=== PATIENT | male | born 1950 | race Caucasian/White ===

== ENCOUNTER 2016-05-14 23:37 | Emergency (ER) | payer BC, MEDICARE, OTHER ==
[~2016-05-14] VITALS: Ht 185.4 cm; Wt 114.0 kg
[~2016-05-14 23:37] MED LIST: Z.0.NO CURRENT MEDS
[2016-05-14 23:50] VITALS: BP 135/102; PULSE 70; RESP 18; TEMP 97.9; O2SAT 99
[2016-05-14 23:59] VITALS: RESP 18; O2SAT 99
[2016-05-15] MEDS ORDERED: ASPIRIN 81 MG CHEW TAB PO ONE
--- NOTE | 2016-05-15 | PD ---
HPI Chief Complaint: Chest Pain Time Seen by Provider: 23:40 Travel History International Travel<30 days: No Contact w/Intl Traveler<30days: No Traveled to known affect area: No History of Present Illness HPI The patient is a 66-year-old male with a history of coronary artery disease and states that at approximately 11 PM tonight he felt a pressure sensation behind the sternal area associated with diaphoresis, nausea and shortness of breath. He took 2 baby aspirin today. He has a history of atrial fibrillation since 2007. He is from [place] and does not have a half sole fitter there, he has a primary care doctor up there but no local doctor down here. He is on vacation. The pain is constant and slightly pleuritic. He didn't bring his medicines and doesn't know his medications but thinks the only 2 medications he is on are metoprolol and aspirin. Apparently, he has refused to take anticoagulants for his atrial fibrillation. He states that he has difficult veins and he will give us only one shot to start an IV/draw blood. He does not drink alcohol. PFS Past Medical History Blood Disorders: No Cardiovascular Problems: Yes Chest Pain: Yes Genitourinary: No Hypertension: Yes Musculoskeletal: Yes Neurologic: No Reproductive: No Respiratory: No Social History Alcohol Use: No Tobacco Use: No Substance Use: No Allergies-Medications (Allergen,Severity, Reaction): Coded Allergies: No Known Allergies (Verified , 05/14/16) Reported Meds & Prescriptions Reported Meds & Active Scripts Active Review of Systems ROS Limitations: Uncooperative Except as stated in HPI: all other systems reviewed are Neg Physical Exam Exam Limitations: Poor Historian, Uncooperative Narrative GENERAL: The patient is alert, oriented 3 and slight apparent distress with his chest discomfort. His vital signs show blood pressure 135/102 but are otherwise normal. SKIN: Warm and dry. No skin rash is noted. HEAD: Atraumatic. Normocephalic. EYES: Pupils equal and round. No scleral icterus. No injection or drainage. ENT: No nasal bleeding or discharge. Mucous membranes pink and moist. NECK: Trachea midline. No JVD. CARDIOVASCULAR: Regular rate and rhythm. No murmur appreciated. RESPIRATORY: No accessory muscle use. Clear to auscultation. Breath sounds equal bilaterally. GASTROINTESTINAL: Abdomen soft, non-tender, nondistended. Hepatic and splenic margins not palpable. No guarding or rebound is present. MUSCULOSKELETAL: No obvious deformities. No clubbing. No cyanosis. No edema. NEUROLOGICAL: Awake and alert. No obvious cranial nerve deficits. Motor grossly within normal limits. Normal speech. PSYCHIATRIC: Appropriate mood and affect; insight and judgment normal. Data Data Last Documented VS Vital Signs Date Time Temp Pulse Resp B/P Pulse Ox O2 Delivery O2 Flow Rate FiO2 05/15/16 02:28 78 18 97 Room Air 05/15/16 01:49 113/82 05/14/16 23:50 97.9 Orders Electrocardiogram (05/14/16 23:47) B-Type Natriuretic Peptide (05/14/16 23:47) Ckmb (Isoenzyme) Profile (05/14/16 23:47) Complete Blood Count With Diff (05/14/16 23:47) Comprehensive Metabolic Panel (05/14/16 23:47) Magnesium (Mg) (05/14/16 23:47) Prothrombin Time / Inr (Pt) (05/14/16 23:47) Act Partial Throm Time (Ptt) (05/14/16 23:47) Troponin I (05/14/16 23:47) Ecg Monitoring (05/14/16 23:47) Iv Access Insert/Monitor (05/14/16 23:47) Oximetry (05/14/16 23:47) Oxygen Administration (05/14/16 23:47) Aspirin Chew (Aspirin Chew) (05/15/16 00:00) Sodium Chloride 0.9% Flush (Ns Flush) (05/15/16 00:00) Nitroglycerin Sl (Nitrostat Sl) (05/15/16 00:00) Chest, Pa & Lat (05/14/16 23:47) Ondansetron Inj (Zofran Inj) (05/15/16 01:15) CKMB (05/15/16 01:10) CKMB% (05/15/16 01:10) Ct Thorax/ Chest Wo Iv Contras (05/15/16 00:37) Labs Laboratory Tests Test 05/15/16 01:10 White Blood Count 7.6 TH/MM3 Red Blood Count 4.60 MIL/MM3 Hemoglobin 14.1 GM/DL Hematocrit 42.3 % Mean Corpuscular Volume 91.9 FL Mean Corpuscular Hemoglobin 30.7 PG Mean Corpuscular Hemoglobin 33.4 % Concent Red Cell Distribution Width 13.2 % Platelet Count 254 TH/MM3 Mean Platelet Volume 7.8 FL Neutrophils (%) (Auto) 69.5 % Lymphocytes (%) (Auto) 20.2 % Monocytes (%) (Auto) 9.1 % Eosinophils (%) (Auto) 0.6 % Basophils (%) (Auto) 0.6 % Neutrophils # (Auto) 5.4 TH/MM3 Lymphocytes # (Auto) 1.5 TH/MM3 Monocytes # (Auto) 0.7 TH/MM3 Eosinophils # (Auto) 0.0 TH/MM3 Basophils # (Auto) 0.0 TH/MM3 CBC Comment DIFF FINAL Differential Comment Prothrombin Time 11.7 SEC Prothromb Time International 1.1 RATIO Ratio Activated Partial 23.6 SEC Thromboplast Time Sodium Level 140 MEQ/L Potassium Level 3.9 MEQ/L Chloride Level 106 MEQ/L Carbon Dioxide Level 25.4 MEQ/L Anion Gap 9 MEQ/L Blood Urea Nitrogen 20 MG/DL Creatinine 1.30 MG/DL Estimat Glomerular Filtration 55 ML/MIN Rate Random Glucose 236 MG/DL Calcium Level 8.5 MG/DL Magnesium Level 2.1 MG/DL Total Bilirubin 0.4 MG/DL Aspartate Amino Transf 25 U/L (AST/SGOT) Alanine Aminotransferase 26 U/L (ALT/SGPT) Alkaline Phosphatase 117 U/L Total Creatine Kinase 147 U/L Creatine Kinase MB 1.9 NG/ML Troponin I 0.06 NG/ML B-Type Natriuretic Peptide 104 PG/ML Total Protein 7.3 GM/DL Albumin 3.4 GM/DL MDM Medical Decision Making Medical Screen Exam Complete: Yes Emergency Medical Condition: Yes Medical Record Reviewed: Yes Interpretation(s) The EKG shows atrial fibrillation rhythm with a rate of [address] elevation or depression. All EKGs for comparison are from 2006 when he was in sinus rhythm. The 20-50 Accu-Chek was 31, the 26/06/09 Accu-Chek was 39 and the 26/06/29 Accu-Chek was 139. At this time the patient feels fine and wants to go. He will be given a prescription for Zofran. The complete metabolic profile shows a BUN of 20, glucose 236, GFR 55 but is otherwise unremarkable. The BNP is 104. The cardiac enzymes show a troponin I of 0.06. The ProTime is 11.7 with an INR 1.1 and a PTT of 23.6. Differential Diagnosis Acute coronary syndrome, chest pain etiology undetermined, esophageal pain, chest wall pain, pleuritic pain, gastrointestinal pain, musculoskeletal pain Narrative Course The patient now refuses his nitroglycerin. A CT angiogram was ordered to rule out aortic dissection because of the finding on chest x-ray. The patient was told about this and agreed to do a CT angiogram. Unfortunately, the IV versed during the angiogram test in the contrast portion of the angiogram cannot be done. Therefore we cannot rule out a dissection. The patient does have a slightly elevated cardiac enzyme and we strongly recommended admission. The patient refused and is signing out AMA. He was told about the dangers of doing this, sudden cardiac , dissection aortic aneurysm and . Diagnosis Primary Impression: Elevated troponin I level Additional Impression: Aortic arch dissection Additional Instructions: If you change your mind we will want to admit you. You have evidence of some slight cardiac damage at this time and we could not rule out an aortic dissection. If you get worse or change her mind, please return to emergency department. Disposition: AGAINST MEDICAL ADVICE Condition: Stable Pedro Hoffman MD May 15, 2016 00:00
[2016-05-15] MEDS: NITROGLYCERIN 0.4 MG SL 25 TABS/BTL SL SCH ×5 (00:05→01:42)
--- NOTE | 2016-05-15 00:31 | RADHPO ---
EXAM DATE/TIME: 05/15/2016 00:11 [facility] COMPARISON: No previous studies available for comparison. INDICATIONS : Chest pain. MEDICAL HISTORY : None. SURGICAL HISTORY : None. ENCOUNTER: Initial ACUITY: 1 day PAIN SCORE: 6/10 LOCATION: Bilateral chest FINDINGS: Cardiomegaly. Clear lungs. Osseous structures are intact. The examination demonstrates an extra densi ty paralleling the aortic shadow at the level of the arch and proximal descending thoracic aorta. The possibility of an aortic dissection is not excluded. Further evaluation with CT angiography of the c hest recommended. CONCLUSION: Parallel density adjacent to the aortic arch is nonspecific but can be seen with dissection. CT chest with contrast recommended for further assessment. Colt Horner MD on May 15, 2016 at 0:28 Board Certified Radiologist. This report was verified electronically.
[2016-05-15] MEDS: SODIUM CHLORIDE 0.9% FLUSH 5 ML FLUSH IVF PRN ×2 (00:41→01:53)
[2016-05-15] MEDS ORDERED: ONDANSETRON HCL 4 MG/2 ML VIAL IV ONE (01:15)
[2016-05-15 01:21] LABS: AUTOMATED NEUTROPHIL # 5.4 TH/MM3 (1.8-7.7); BASOPHIL % 0.6 % (0.0-2.0); EOSINOPHIL % 0.6 % (0.0-4.0); HEMATOCRIT 42.3 % (39.0-51.0); HEMO FLAGS DIFF FINAL; LYMPH % 20.2 % (9.0-44.0); LYMPHOCYTE # 1.5 TH/MM3 (1.0-4.8); MEAN CELL VOLUME 91.9 FL (80.0-100.0); MEAN CORPUSCULAR HEMOGLOBIN 30.7 PG (27.0-34.0); MEAN CORPUSCULAR HGB CONC 33.4 % (32.0-36.0); MONO % 9.1 % (0.0-8.0); NEUT % 69.5 % (16.0-70.0); PLATELET COUNT 254 TH/MM3 (150-450); RED CELL DISTRIBUTION WIDTH 13.2 % (11.6-17.2); WHITE BLOOD COUNT 7.6 TH/MM3 (4.0-11.0)
[2016-05-15 01:23] VITALS: BP 117/89; PULSE 83; RESP 18; O2SAT 100
[2016-05-15 01:28] LABS: CHLORIDE 106 MEQ/L (98-107); POTASSIUM 3.9 MEQ/L (3.5-5.1); SODIUM (NA) 140 MEQ/L (136-145)
[2016-05-15 01:32] LABS: ANION GAP 9 MEQ/L (5-15); BICARBONATE 25.4 MEQ/L (21.0-32.0); BLOOD UREA NITROGEN 20 MG/DL (7-18); MAGNESIUM 2.1 MG/DL (1.5-2.5)
[2016-05-15 01:33] LABS: APTT (PATIENT) 23.6 SEC (24.3-30.1); INTERNATIONAL NORMALIZED RATIO 1.1 RATIO; PROTHROMBIN TIME - PATIENT 11.7 SEC (9.8-11.6)
[2016-05-15 01:35] LABS: ALT (GPT) 26 U/L (12-78); AST (GOT) 25 U/L (15-37); GLOMERULAR FILTRATION RATE 55 ML/MIN (>89)
[2016-05-15 01:36] LABS: TOTAL BILIRUBIN ADULT 0.4 MG/DL (0.2-1.0)
[2016-05-15 01:38] LABS: ALKALINE PHOSPHATASE 117 U/L (45-117); CREATINE KINASE 147 U/L (39-308)
[2016-05-15 01:43] VITALS: BP 116/82; PULSE 77; RESP 18; O2SAT 97
[2016-05-15 01:49] VITALS: BP 113/82; PULSE 68; RESP 18; O2SAT 98
[2016-05-15 01:50] LABS: CKMB 1.9 NG/ML (0.5-3.6)
--- NOTE | 2016-05-15 02:38 | RADHPO ---
EXAM DATE/TIME: 05/15/2016 01:58 [facility] COMPARISON: CHEST PA & LAT, May 15, 2016, 0:11. INDICATIONS : Substernal chest pain with shortness of breath. RADIATION DOSE: 22.6 CTDIvol (mGy) MEDICAL HISTORY : Coronary artery disease. A-fib. SURGICAL HISTORY : None. ENCOUNTER: Initial ACUITY: 1 day PAIN SCALE: 7/10 LOCATION: chest TECHNIQUE: Volumetric scanning of the chest was performed. Using automated exposure control and adjustment of t he mA and/or kV according to patient size, radiation dose was kept as low as reasonably achievable to obtain optimal diagnostic quality images. FINDINGS: Contrast was not administered for this examination as was recommended on the recent chest radiograph examination. Therefore an aortic dissection cannot entirely be excluded on the basis of this exam. M inimal linear atelectasis in the medial segment right middle lobe identified. The lungs are otherwise clear. No pleural or pericardial effusions are seen. There is atherosclerotic calcification of the a anastasia and coronary arteries. Cardiomegaly is noted. There is no adenopathy. There are degenerative francisco nges of the spine seen. CONCLUSION: 1. Atherosclerosis and coronary artery disease. 2. Minimal right middle lobe linear atelectasis. Colt Horner MD on May 15, 2016 at 2:33 Board Certified Radiologist. This report was verified electronically.
[2016-05-15 02:53] VITALS: BP 113/78; PULSE 78; RESP 18; O2SAT 97
--- NOTE | 2016-05-15 03:33 | PD ---
HPI Chief Complaint: Chest Pain Time Seen by Provider: 23:40 Travel History International Travel<30 days: No Contact w/Intl Traveler<30days: No Traveled to known affect area: No History of Present Illness HPI The patient is a 66-year-old male with a history of coronary artery disease who states that approximately 11 PM tonight he developed pressure sensation behind his sternal area associated with diaphoresis, nausea and jars of breath. He took 2 baby aspirin today. He has a history of atrial fibrillation since 2007. 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 He has a primary care doctor there and he has no local doctor here. He is on vacation. The pain is constant and slightly pleuritic. He did not bring his medications and does not know his medications but thinks the only 2 medications he is on are metoprolol and aspirin. Apparently, he has refused in the past to take anticoagulants for his atrial fibrillation. He states that he has difficult veins and he will give us only one shot to draw blood and start an IV. He does not drink alcohol. PFS Past Medical History Atrial Fibrillation: Yes Blood Disorders: No Cardiovascular Problems: Yes Chest Pain: Yes Diminished Hearing: No Genitourinary: No Hypertension: Yes Musculoskeletal: Yes Neurologic: No Reproductive: No Respiratory: No Immunizations Current: Yes Tetanus Vaccination: Unknown Influenza Vaccination: Yes Social History Alcohol Use: No Tobacco Use: No Substance Use: No Allergies-Medications (Allergen,Severity, Reaction): Coded Allergies: No Known Allergies (Verified , 05/14/16) Reported Meds & Prescriptions Reported Meds & Active Scripts Active Review of Systems Except as stated in HPI: all other systems reviewed are Neg Physical Exam Narrative GENERAL: The patient is alert, oriented 3, slightly obese in slight apparent distress with his chest discomfort. His vital signs show blood pressure 135/ 102 but otherwise normal. SKIN: Warm and dry. No skin rash is noted. HEAD: Atraumatic. Normocephalic. EYES: Pupils equal and round. No scleral icterus. No injection or drainage. ENT: No nasal bleeding or discharge. Mucous membranes pink and moist. NECK: Trachea midline. No JVD. CARDIOVASCULAR: Regular rate and rhythm. No murmur appreciated. RESPIRATORY: No accessory muscle use. Clear to auscultation. Breath sounds equal bilaterally. GASTROINTESTINAL: Abdomen soft, non-tender, nondistended. Hepatic and splenic margins not palpable. No guarding or rebound is present. MUSCULOSKELETAL: No obvious deformities. No clubbing. No cyanosis. No edema. NEUROLOGICAL: Awake and alert. No obvious cranial nerve deficits. Motor grossly within normal limits. Normal speech. PSYCHIATRIC: Appropriate mood and affect; insight and judgment normal. The patient is somewhat angry. Data Data Last Documented VS Vital Signs Date Time Temp Pulse Resp B/P Pulse Ox O2 Delivery O2 Flow Rate FiO2 05/15/16 02:53 78 18 113/78 97 Room Air 05/14/16 23:50 97.9 Orders Electrocardiogram (05/14/16 23:47) B-Type Natriuretic Peptide (05/14/16 23:47) Ckmb (Isoenzyme) Profile (05/14/16 23:47) Complete Blood Count With Diff (05/14/16 23:47) Comprehensive Metabolic Panel (05/14/16 23:47) Magnesium (Mg) (05/14/16 23:47) Prothrombin Time / Inr (Pt) (05/14/16 23:47) Act Partial Throm Time (Ptt) (05/14/16 23:47) Troponin I (05/14/16 23:47) Ecg Monitoring (05/14/16 23:47) Iv Access Insert/Monitor (05/14/16 23:47) Oximetry (05/14/16 23:47) Oxygen Administration (05/14/16 23:47) Aspirin Chew (Aspirin Chew) (05/15/16 00:00) Sodium Chloride 0.9% Flush (Ns Flush) (05/15/16 00:00) Nitroglycerin Sl (Nitrostat Sl) (05/15/16 00:00) Chest, Pa & Lat (05/14/16 23:47) Ondansetron Inj (Zofran Inj) (05/15/16 01:15) CKMB (05/15/16 01:10) CKMB% (05/15/16 01:10) Ct Thorax/ Chest Wo Iv Contras (05/15/16 00:37) Labs Laboratory Tests Test 05/15/16 01:10 White Blood Count 7.6 TH/MM3 Red Blood Count 4.60 MIL/MM3 Hemoglobin 14.1 GM/DL Hematocrit 42.3 % Mean Corpuscular Volume 91.9 FL Mean Corpuscular Hemoglobin 30.7 PG Mean Corpuscular Hemoglobin 33.4 % Concent Red Cell Distribution Width 13.2 % Platelet Count 254 TH/MM3 Mean Platelet Volume 7.8 FL Neutrophils (%) (Auto) 69.5 % Lymphocytes (%) (Auto) 20.2 % Monocytes (%) (Auto) 9.1 % Eosinophils (%) (Auto) 0.6 % Basophils (%) (Auto) 0.6 % Neutrophils # (Auto) 5.4 TH/MM3 Lymphocytes # (Auto) 1.5 TH/MM3 Monocytes # (Auto) 0.7 TH/MM3 Eosinophils # (Auto) 0.0 TH/MM3 Basophils # (Auto) 0.0 TH/MM3 CBC Comment DIFF FINAL Differential Comment Prothrombin Time 11.7 SEC Prothromb Time International 1.1 RATIO Ratio Activated Partial 23.6 SEC Thromboplast Time Sodium Level 140 MEQ/L Potassium Level 3.9 MEQ/L Chloride Level 106 MEQ/L Carbon Dioxide Level 25.4 MEQ/L Anion Gap 9 MEQ/L Blood Urea Nitrogen 20 MG/DL Creatinine 1.30 MG/DL Estimat Glomerular Filtration 55 ML/MIN Rate Random Glucose 236 MG/DL Calcium Level 8.5 MG/DL Magnesium Level 2.1 MG/DL Total Bilirubin 0.4 MG/DL Aspartate Amino Transf 25 U/L (AST/SGOT) Alanine Aminotransferase 26 U/L (ALT/SGPT) Alkaline Phosphatase 117 U/L Total Creatine Kinase 147 U/L Creatine Kinase MB 1.9 NG/ML Troponin I 0.06 NG/ML B-Type Natriuretic Peptide 104 PG/ML Total Protein 7.3 GM/DL Albumin 3.4 GM/DL MDM Medical Decision Making Medical Screen Exam Complete: Yes Emergency Medical Condition: Yes Medical Record Reviewed: Yes Interpretation(s) The CBC is essentially normal. The complete metabolic profile shows a GFR of 55 , creatinine 1.3, glucose 236 but is otherwise normal. The BNP is 104. The Cardec enzymes show a troponin I of 0.06. The chest x-ray shows a parallel silhouette next to the aortic arch which could be a lot of things but most concerning is the possibility of dissecting aortic aneurysm. A CT thorax with IV contrast was ordered but apparently the vein ruptured ring the contrast stage of the exam and only a CT thorax without IV contrast was done. The CT without IV contrast shows atherosclerosis and coronary artery disease in minimal right middle lobe linear atelectasis. The patient refused another IV for an attempt to do a with contrast CTA of the thorax. The EKG shows atrial fibrillation with a rate of [address] elevation or depression. Differential Diagnosis Acute coronary syndrome, chest pain etiology undetermined, esophageal pain, chest wall pain, pleuritic pain, gastrointestinal pain, musculoskeletal pain, renal insufficiency, anemia, electrolyte disorder Narrative Course The patient apparently has chest pain etiology undetermined. He does have an elevated troponin I and we strongly recommended admission telling him that there was some evidence of cardiac damage. The patient understood the reason he needed to be admitted but refused. We also told him about the possibility of a dissecting aortic aneurysm. He did not change his mind and decided to sign out AGAINST MEDICAL ADVICE. He was told about the dangers of myocardial infarction which include sudden cardiac and with dissection of an aortic aneurysm. He is told about the signs and symptoms of a dissecting aortic aneurysm and return immediately to the [facility] should these occur. Physician Communication Physician Communication As we discussed, if you change your mind please return to emergency department. The [facility] would be a good place to return because they do the coronary angiograms in any vascular surgery down there. As we discussed, you do have evidence of some slight cardiac damage at this time and we wanted to admit you so that we could handle the dysrhythmias and other problems that could cause . Diagnosis Primary Impression: Elevated troponin I level Additional Impressions: AMA Aortic arch dissection Referrals: Family Practice Physician call for appointment Patient Instructions: General Instructions, Chest Pain (ED) Departure Forms: Tests/Procedures Additional Instructions: If you change your mind we will want to admit you. You have evidence of some slight cardiac damage at this time and we could not rule out an aortic dissection. If you get worse or change her mind, please return to emergency department. Disposition: AGAINST MEDICAL ADVICE Condition: Stable Pedro Hoffman MD May 15, 2016 03:33
--- NOTE | 2016-05-15 11:40 | EKG ---
Date Performed: 05/14/2016 Time Performed: 23:38:24 PTAGE: 66 years EKG: Atrial fibrillation. Left axis deviation IV conduction defect Possible anterior infarct - a ge undetermined Inferior ST-T changes are nonspecific Abnormal ECG PREVIOUS TRACING : 01/18/2007 06.14 DOCTOR: Gabriel Romeo Interpretating Date/Time 05/15/2016 11:38:28
== END 2016-05-15 04:09 | disposition left against medical advice (07) ==
LOC: EDBD 23:37 → PHED 23:37
DX: R74.8 Abnormal levels of other serum enzymes (principal); I71.01 Dissection of thoracic aorta; I25.10 Atherosclerotic heart disease of native coronary artery without angina pectoris; I48.91 Unspecified atrial fibrillation; R06.02 Shortness of breath; R61 Generalized hyperhidrosis; R11.0 Nausea; I10 Essential (primary) hypertension
CPT/HCPCS: 71020; 71250; 80053; 82550; 82552; 83735; 83880; 84484; 85025; 85610; 85730; 93005; 96374; 99285; J2405